=== PATIENT | female | born 2000 | race Caucasian/White ===

== ENCOUNTER → 2018-01-01 12:23 | Outpatient (CLI) | payer BC, SELFPAY ==
[2018-01-01 12:57] LABS: Absolute Lymphocyte Count 1.78 X10^3/ul (0.83-4.51); Absolute Neutrophil Count 2.6 X10^3/uL (2.0-7.7); Basophil# 0.03 X10^3/uL; Basophil% 0.6 % (0-1); Eosinophil# 0.05 X10^3/uL; Hematocrit 36.9 % (37-47); Hemoglobin 11.2 g/dl (12.0-15.0); Lymphocyte # 1.78 X10^3/ul (4.0); Lymphocyte % 36.6 % (19-41); Mean Corp Hgb Conc 30.4 g/gl (32-36); Mean Corpuscular Hgb 26.1 pg (27.0-32.0); Mean Platelet Vol. 9.8 fl (6.2-12.0); Monocyte% 8.2 % (0-10); Neutrophil % 53.6 % (47-70); Platelet Count 273 K/mm3 (150-450); RBC Distribution Width CV 14.5 % (11.6-14.6); Red Blood Count 4.29 M/mm3 (4.2-5.4); White Blood Count 4.9 K/mm3 (4.4-11.0)
[2018-01-01 13:06] LABS: POSITIVE COUNT NO; POSITIVE DIFFERENTIAL NO; POSITIVE MORPHOLOGY NO
[2018-01-01 13:10] LABS: Erythrocyte Sedimentation Rate 8 mm/hr (0-20)
[2018-01-01 13:34] LABS: Vitamin D,25 Hydroxy 31.9 ng/mL (29.95-100.01)
[2018-01-01 13:35] LABS: ALB/GLOB Ratio 0.9 RATIO (0.9-2.4); AST(SGOT) 13 U/L (15-37); Alanine Aminotransfer ALT/SGPT 15 U/L (13-56); Albumin, Serum 3.7 g/dL (3.2-5.0); Alkaline Phosphatase 45 U/L (45-117); Anion Gap 6 (5-15); BUN 11 mg/dL (7-18); BUN/Creat Ratio 12.5 RATIO (10-20); Calcium,Total 8.7 mg/dL (8.5-10.1); Chloride 106 mmol/L (98-107); Creatinine, Serum 0.88 mg/dL (0.55-1.02); EST Glomerular Filtration Rate 88 mL/min (>60); Est Glom Filt Rate - Afr Amer 106 mL/min (>60); Globulin 4.1 g/dL (2.2-4.2); Glucose 94 mg/dL (74-106); Magnesium 2.1 mg/dL (1.6-2.6); Phosphorus 2.6 mg/dL (2.5-4.9); Protein, Total 7.8 g/dL (6.4-8.2); Sodium Level 140 mmol/L (136-145); Thyroid Stim Hormone (TSH) 1.04 uIU/mL (0.358-3.74)
== END ==
PROVIDERS: Family Provider Pediatrics; PCP Pediatrics
DX: E46 Unspecified protein-calorie malnutrition (principal)
CPT/HCPCS: 36415; 80053; 82306; 83735; 84100; 84443; 85025; 85652

== ENCOUNTER → 2018-01-30 15:45 | Outpatient (CLI) | payer BC, SELFPAY ==
[2018-01-30 17:27] LABS: Hematocrit 37.9 % (37-47); Hemoglobin 11.8 g/dl (12.0-15.0); Mean Corp Hgb Conc 31.1 g/gl (32-36); Mean Corpuscular Hgb 27.4 pg (27.0-32.0); Mean Corpuscular Volume 88.1 fL (81-99); Mean Platelet Vol. 10.4 fl (6.2-12.0); Platelet Count 302 K/mm3 (150-450); RBC Distribution Width CV 14.5 % (11.6-14.6); RBC Distribution Width SD 46.6 fl (35.1-43.9); White Blood Count 6.7 K/mm3 (4.4-11.0)
[2018-01-30 17:32] LABS: Scan Indicated on CBC? Y/N NO
== END ==
PROVIDERS: Family Provider Pediatrics; PCP Pediatrics
DX: E46 Unspecified protein-calorie malnutrition (principal)
CPT/HCPCS: 36415; 85027

== ENCOUNTER → 2018-02-17 15:45 | Outpatient (CLI) | payer BC, SELFPAY ==
[2018-02-17 17:38] LABS: Hematocrit 38.9 % (37-47); Hemoglobin 11.6 g/dl (12.0-15.0)
== END ==
PROVIDERS: Family Provider Pediatrics; PCP Pediatrics
DX: E46 Unspecified protein-calorie malnutrition (principal); R53.83 Other fatigue
CPT/HCPCS: 36415; 85014; 85018

== ENCOUNTER → 2018-11-06 08:47 | Outpatient (CLI) | payer BC, SELFPAY ==
[2018-11-06 12:19] LABS: Absolute Lymphocyte Count 1.44 X10^3/ul (0.83-4.51); Absolute Neutrophil Count 1.4 X10^3/uL (2.0-7.7); Basophil# 0.04 X10^3/uL; Basophil% 1.2 % (0-1); Eosinophil# 0.05 X10^3/uL; Eosinophils% 1.4 % (0-5); Hematocrit 35.6 % (37-47); Hemoglobin 10.7 g/dl (12.0-15.0); Lymphocyte # 1.44 X10^3/ul (4.0); Lymphocyte % 41.6 % (19-41); Mean Corp Hgb Conc 30.1 g/gl (32-36); Mean Corpuscular Hgb 26.4 pg (27.0-32.0); Mean Corpuscular Volume 87.7 fL (81-99); Mean Platelet Vol. 10.7 fl (6.2-12.0); Monocyte# 0.54 X10^3/uL; Monocyte% 15.6 % (0-10); Neutrophil # 1.38 X10^3/uL (2.7-7.7); Neutrophil % 39.9 % (47-70); Platelet Count 275 K/mm3 (150-450); RBC Distribution Width CV 14.1 % (11.6-14.6); RBC Distribution Width SD 44.3 fl (35.1-43.9); Red Blood Count 4.06 M/mm3 (4.2-5.4); White Blood Count 3.5 K/mm3 (4.4-11.0)
[2018-11-06 12:20] LABS: POSITIVE COUNT NO; POSITIVE DIFFERENTIAL NO; POSITIVE MORPHOLOGY NO
[2018-11-06 12:45] LABS: ALB/GLOB Ratio 1.3 RATIO (0.9-2.4); AST(SGOT) 24 U/L (15-37); Alanine Aminotransfer ALT/SGPT 26 U/L (13-56); Albumin, Serum 4.1 g/dL (3.2-5.0); Alkaline Phosphatase 54 U/L (45-117); Anion Gap 6 (5-15); BUN 10 mg/dL (7-18); BUN/Creat Ratio 11.9 RATIO (10-20); Calcium,Total 8.8 mg/dL (8.5-10.1); Chloride 107 mmol/L (98-107); Creatinine, Serum 0.84 mg/dL (0.55-1.02); EST Glomerular Filtration Rate 91 mL/min (>60); Est Glom Filt Rate - Afr Amer 110 mL/min (>60); Globulin 3.2 g/dL (2.2-4.2); Glucose 77 mg/dL (74-106); Potassium 3.9 mmol/L (3.5-5.1); Protein, Total 7.3 g/dL (6.4-8.2); Sodium Level 140 mmol/L (136-145); Thyroid Stim Hormone (TSH) 1.35 uIU/mL (0.358-3.74)
[2018-11-06 13:33] LABS: Magnesium 2.1 mg/dL (1.6-2.6); Phosphorus 3.4 mg/dL (2.5-4.9)
== END ==
PROVIDERS: Family Provider Family Medicine; PCP Family Medicine; Visit Provider Family Medicine
DX: F50.01 Anorexia nervosa, restricting type (principal)
CPT/HCPCS: 36415; 80053; 83735; 84100; 84443; 85025

== ENCOUNTER 2021-07-13 09:14 | Day surgery (SDC) | payer BC, SELFPAY ==
[2021-07-13 09:30] VITALS: BP 93/79; PULSE 82; RESP 16; TEMP 37.3; O2SAT 100; BMI 22.3
[2021-07-13] MEDS: Lactated Ringers 1,000 ML 15 ML IV (09:45)
[2021-07-13 09:46] LABS: Internal QC Validated? YES +Cl - CLEAR BKGD
[2021-07-13 09:49] LABS: Pregnancy, Urine Negative Negative
--- NOTE | 2021-07-13 10:15 | IMM_PTH ---
PATIENT: KAROLYN MENENDEZ LOC: EN U#:[id number] AGE/SX: 21/F ROOM: RE07/13/[address]: Dr. Joao Snell DO : 2000 BED: DIS: 07/13/2021 SPEC #: [id number] RECD: 07/13/21 14:25 STATUS: FAIZA DASIA #: [id number] FERMIN: 07/13/21 10:[address]: Joao Snell DEPT: IMMUNOHISTOCHEMISTRY RECD BY: Sun Wade Tissues: E - Stomach, NOS Procedures: H Pylori (initial) PHYSICIAN & INSTITUTION [place] [id number] SPECIMEN INFORMATION: Tissue Source: E ? Gastric antrum biopsy Clinical Info: Nausea Specimen Number: [id number] CPT code: 36437 METHODOLOGY: Deparaffinized sections of prefer/formalin-fixed tissue or PAP/DQ stained slides are incubated with monoclonal/polyclonal antibodies/oligonucleotide probes. Localization is made via biotin free immunoperoxidase method. Appropriate controls are performed and reacted as expected. Results on target cell population are indicated in the following table: RESULTS: ANTIBODY / CLONE RESULT Block E H Pylori (polyclonal) negative These tests were developed and their performance characteristics determined by [facility]. They may not have been cleared or approved by the U.S. Food and Drug Administration. The FDA has determined that such clearance or approval is not necessary. INTERPRETATION: E. Gastric antrum, biopsy: Negative for Helicobacter pylori organisms. LORENZA:anna 07/14/2021
--- NOTE | 2021-07-13 10:15 | EGD_PTH ---
PATIENT: KAROLYN MENENDEZ LOC: EN U#:[id number] AGE/SX: 21/ ROOM: RE07/13/[address]: Dr. Joao Snell DO : 2000 BED: DIS: 07/13/2021 SPEC #: [id number] RECD: 07/13/21 12:52 STATUS: FAIZA DASIA #: [id number] FERMIN: 07/13/21 10:[address]: Joao Snell DEPT: SURGICAL PATHOLOGY RECD BY: Tiarra Bourne Tissues: A - Duodenum, NOS B - Esophagus, NOS C - Esophagus, NOS D - Esophagus, NOS E - Gastric mucous membrane Procedures: Special Stain Group II Surgery Specimen Level IV Alcian Blue/PAS (control) HEADER OPERATION: EGD ([facility] [place] PRE-OP DIAGNOSIS: Nausea TISSUE SUBMITTED: A ? Duodenum biopsy, B ? Distal esophagus biopsy, C ? Mid esophagus biopsy, D ? Proximal esophagus biopsy, E ? Gastric antrum biopsy for H. pylori and path MICROSCOPIC DIAGNOSIS A. Duodenum, biopsy: Fragments of duodenal mucosa with Regina gland hyperplasia. B. Distal esophagus, biopsy: Fragments of gastric mucosa with congestion and minimal chronic inflammation. Intestinal metaplasia (goblet cell metaplasia) not identified. See comment. C. Mid esophagus, biopsy: Fragments of squamous epithelium, no pathologic diagnosis. D. Proximal esophagus, biopsy: Fragments of gastroesophageal mucosa with mild chronic inflammation. Intestinal metaplasia (goblet cell metaplasia) not identified. See comment. E. Gastric antrum, biopsy: Mild gastritis. See microscopic description and comment. SJ:rg 07/14/2021 COMMENT B. Alcian blue/PAS stain with matched control is used in the evaluation of the specimen. D. Alcian blue/PAS stain with matched control is used in the evaluation of the specimen. E. The results of immunohistochemistry for Helicobacter pylori will be reported separately ([id number]). MICROSCOPIC DESCRIPTION Slides are reviewed. E. The specimen shows fragments of gastric mucosa with chronic inflammatory cell infiltrates in the lamina propria consisting of lymphocytes and plasma cells, consistent with mild chronic gastritis. GROSS DESCRIPTION A - Received in fixative is one container labeled with the patient's name and designated duodenum biopsy. The specimen consists of multiple irregular fragments of light kitchen soft tissue that in aggregate measure 1 x 0.6 x 0.1 cm. The specimen is totally submitted in one cassette. B - Received in fixative is one container labeled with the patient's name and designated esophagus biopsy. The specimen consists of multiple irregular fragments of light kitchen soft tissue that in aggregate measure 1 x 0.5 x 0.1 cm. The specimen is totally submitted in one cassette. C - Received in fixative is one container labeled with the patient's name and designated mid esophagus biopsy. The specimen consists of two irregular fragments of light kitchen soft tissue that in aggregate measure 1 x 0.5 x 0.1 cm. The specimen is totally submitted in one cassette. D - Received in fixative is one container labeled with the patient's name and designated proximal esophagus biopsy. The specimen consists of multiple irregular fragments of light kitchen soft tissue that in aggregate measure 1 x 0.5 x 0.1 cm. The specimen is totally submitted in one cassette. E - Received in fixative is one container labeled with the patient's name and designated gastric antrum biopsy. The specimen consists of two irregular fragments of light kitchen soft tissue that in aggregate measure 0.5 x 0.5 x 0.1 cm. The specimen is totally submitted in one cassette. / AM:anna 07/13/21 TC:3 CPT: 96638 x5, 02347 x2
[2021-07-13 10:45] VITALS: BP 86/57; BP 93/79; PULSE 60; RESP 16; TEMP 36.3; O2SAT 100
[2021-07-13 10:50] VITALS: BP 88/58; BP 93/79; PULSE 58; RESP 18; O2SAT 100
[2021-07-13 10:55] VITALS: BP 87/60; BP 93/79; PULSE 66; RESP 18; O2SAT 100
--- NOTE | 2021-07-13 10:56 | OP.EGD_ITS ---
Patient Name: Kassie Villegas Procedure Date: 07/13/2021 10:24 AM Date of : 2000 Age: 21 Procedure: Upper GI endoscopy Indications: Epigastric abdominal pain, Failure to respond to medical treatment Providers: Joao Snell DO Medicines: See the Anesthesia note for documentation of the administered medications Patient Profile: This is a 21 year old female. Refer to note in patient chart for documentation of history and physical. Patient has symptoms of acute abdominal cramping, chronic dyspepsia, chronic nausea and chronic vomiting. Complications: No immediate complications. Procedure: Pre-Anesthesia Assessment: - Prior to the procedure, a History and Physical was performed, and patient medications and allergies were reviewed. The patient is competent. The risks and benefits of the procedure and the sedation options and risks were discussed with the patient. All questions were answered and informed consent was obtained. Patient identification and proposed procedure were verified by the physician in the pre-procedure area. Mental Status Examination: alert and oriented. Airway Examination: normal oropharyngeal airway and neck mobility. Respiratory Examination: clear to auscultation. CV Examination: normal. Prophylactic Antibiotics: The patient does not require prophylactic antibiotics. Prior Anticoagulants: The patient has taken no previous anticoagulant or antiplatelet agents. ASA Grade Assessment: II - A patient with mild systemic disease. After reviewing the risks and benefits, the patient was deemed in satisfactory condition to undergo the procedure. The anesthesia plan was to use moderate sedation / analgesia (conscious sedation). Immediately prior to administration of medications, the patient was re-assessed for adequacy to receive sedatives. The heart rate, respiratory rate, oxygen saturations, blood pressure, adequacy of pulmonary ventilation, and response to care were monitored throughout the procedure. The physical status of the patient was re-assessed after the procedure. After obtaining informed consent, the endoscope was passed under direct vision. Throughout the procedure, the patient's blood pressure, pulse, and oxygen saturations were monitored continuously. The Endoscope was introduced through the mouth, and advanced to the second part of duodenum. The upper GI endoscopy was accomplished without difficulty. The patient tolerated the procedure well. Moderate Sedation: Moderate (conscious) sedation was administered by the endoscopy nurse and supervised by the endoscopist. The patient's oxygen saturation, heart rate, blood pressure and response to care were monitored. Total physician intraservice time was 15 minutes. Scope In: 10:34:09 AM Scope Out: 10:42:40 AM Total Procedure Duration Time 0 hours 8 minutes 31 seconds Findings: Multiple areas of ectopic gastric mucosa were found in the upper third of the esophagus, 18 cm from the incisors. Biopsies were taken with a cold forceps for histology. Verification of patient identification for the specimen was done. Estimated blood loss was minimal. LA Grade A (one or more mucosal breaks less than 5 mm, not extending between tops of 2 mucosal folds) esophagitis with no bleeding was found 34 to 35 cm from the incisors. Biopsies were taken with a cold forceps for histology. Verification of patient identification for the specimen was done. Estimated blood loss was minimal. Localized mildly erythematous mucosa without bleeding was found in the gastric antrum. Biopsies were taken with a cold forceps for histology. Verification of patient identification for the specimen was done. Estimated blood loss was minimal. The second portion of the duodenum was normal. Biopsies were taken with a cold forceps for histology. Verification of patient identification for the specimen was done. Estimated blood loss was minimal. Impression: - Ectopic gastric mucosa in the upper third of the esophagus. Biopsied. - LA Grade A reflux esophagitis. Biopsied. - Erythematous mucosa in the antrum. Biopsied. - Normal second portion of the duodenum. Biopsied. Recommendation: - Discharge patient to home. - Resume previous diet today. - Continue present medications. - Use Prilosec (omeprazole) 40 mg PO BID for 8 days. Procedure Code(s): --- Professional --- 54748, Esophagogastroduodenoscopy, flexible, transoral; with biopsy, single or multiple 81168, 59, Moderate sedation services provided by the same physician or other qualified health campground caretaker performing the diagnostic or therapeutic service that the sedation supports, requiring the presence of an independent trained observer to assist in the monitoring of the patient's level of consciousness and physiological status; initial 15 minutes of intraservice time, patient age 5 years or older CPT copyright 2017 [employer]. All rights reserved. The codes documented in this report are preliminary and upon molecular biology scientist review may be revised to meet current compliance requirements. Joao Snell DO 07/13/2021 10:55:28 AM This report has been signed electronically. Number of Addenda: 1 Note Initiated On: 07/13/2021 10:24 AM Addendum Number: 1 Addendum Date: 03/15/2022 6:09:13 AM MAC was used instead of moderate sedation for the patient. Joao Snell, 03/15/2022 6:09:17 AM This report has been signed electronically.
[2021-07-13 11:00] VITALS: BP 87/61; BP 93/79; PULSE 63; RESP 18; TEMP 36.3; O2SAT 100
[2021-07-13 11:35] VITALS: BP 93/79
--- NOTE | 2021-07-13 17:12 | HP.PCM_ITS ---
History and Physical Date of Admission: 07/13/21 1 F who presents to the office today for Referred for evaluation of heartburn and nausea. Additional history nausea, heartburn, anorexia nervosa restricting type (seeing [facility]), bloating, dizziness and urinary symptoms. Heartburn ? taking protonix. PCP and behavioral health rn referred due to nausea and early satiety. They believe her stomach is not emptying properly. Nausea starts with PO intake and then remains throughout the day. She eats a bland diet which does not particularly help with nausea but does not increase it significantly. Reports some emesis, but not often. Denies gastric emptying study and imaging. Has attempted Zofran (ineffective), reglan (no significant improvement), brittny foods attempted without effect. Sometimes sitting up straight with a heating pad will take the edge off her symptoms. Heartburn happens occasionally but this is not a target of concern today. ROS Const Constitutional: Positive for fatigue Cardio Cardiology: Positive for shortness of breath Gastro GI: Positive for abdominal pain, bloating and nausea/dyspepsia Musc Musculoskeletal: Positive for tingling Neuro Neurology: Positive for tingling Psych Psychiatric: Positive for anxiety and Positive for obsessions/compulsions Endo Endocrine: Positive for cold intolerance and fatigue Kirby/Lymp Hematologic/Lymphatic: Positive for easy bruising Exam Const General: cooperative and comfortable Nutritional Appearance: average body habitus and well nourished [facility] Head: normal to inspection Ears: hearing grossly normal bilaterally Nose: external nose normal Face and sinus: normal facial exam Mouth: oral mucosae normal Throat: posterior oropharynx normal Eyes General: appearance normal, both eyes and all related structures Neck Neck: normal visual inspection Chest Chest palpation & inspection: normal inspection of the chest and normal palpation of entire chest wall Resp Effort & Inspection: normal respiratory effort Auscultation: Bilateral: Clear to Auscultation Cardio Palpation: normal PMI Rate: regular rate Rhythm: regular rhythm GI Inspection: normal to inspection Auscultation: normal bowel sounds Percussion: normal to percussion Palpation: no hepatosplenomegaly Skin General: no rashes or lesions noted Neuro General: patient alert Extrem General: normal to inspection Psych Affect: normal affect Quality Reporting Tobacco Screening ([facility] 138) Smoking Status: Never smoker Assessment and Plan Assessment and Plan (1) Nausea: Status: Acute Plan - Dr. Shepherd Friend, DO: Differential diagnosis for her nausea does include atypical gastroesophageal reflux disease. She is on Protonix therapy. She does have a eating disorder which could have led to a hiatal hernia. Also deserves diagnosis is gastroparesis brought about secondary to anorexia nervosa. Also we will need to look at her upper GI tract to evaluate for pyloric stenosis and gastritis secondary to H. pylori or peptic ulcer disease. She will undergo upper endoscopy and we will continue pantoprazole for now. She was explained alternatives, risk and benefits including not withstanding bleeding, infection, sepsis, perforation, need for emergency or . She have ASA 1. I have re-examined the patient. There are no clinical changes since date of exam.
== END 2021-07-13 23:59 | disposition home or self-care (01) ==
LOC: EN 09:17 → AC 09:19
PROVIDERS: Anesthesiology; Referring Provider Internal Medicine Gastroenterology; Visit Provider Internal Medicine Gastroenterology
PROC: 0DJ08ZZ Inspection of Upper Intestinal Tract, Via Natural or Artificial Opening Endoscopic (ICD-10-PCS; CPT 43235; principal; 2021-07-13 10:10)
DX: K21.00 Gastro-esophageal reflux disease with esophagitis, without bleeding (principal); K29.70 Gastritis, unspecified, without bleeding; K31.89 Other diseases of stomach and duodenum; R11.0 Nausea; F32.A Depression, unspecified; F41.9 Anxiety disorder, unspecified; F50.00 Anorexia nervosa, unspecified; Z68.22 Body mass index [BMI] 22.0-22.9, adult; Z79.899 Other long term (current) drug therapy
CPT/HCPCS: 43239; 81025; 88305; 88313; 88342; J7120; J2405

== ENCOUNTER 2021-07-14 14:28 | Outpatient (CLI) | payer BC, SELFPAY ==
[2021-07-17 17:07] LABS: Endomysial Antibody IgA Negative (Negative)
[2021-07-17 18:40] LABS: Immunoglobulin A 206 mg/dL (87-352); t-Transglutaminase IgA <2 U/mL (0-3)
== END 2021-07-14 23:59 | disposition short-term general hospital (02) ==
LOC: LAB 14:30
PROVIDERS: Referring Provider Internal Medicine Gastroenterology; Visit Provider Internal Medicine Gastroenterology
DX: K29.60 Other gastritis without bleeding (principal)
CPT/HCPCS: 36415; 82784; 83516; 86255

== ENCOUNTER 2021-07-17 15:58 | Outpatient (CLI) | payer BC, SELFPAY ==
[2021-07-20 09:22] LABS: H. PYLORI STOOL AG Negative (Negative)
== END 2021-07-17 23:59 | disposition short-term general hospital (02) ==
PROVIDERS: Referring Provider Internal Medicine Gastroenterology; Visit Provider Internal Medicine Gastroenterology
DX: K29.60 Other gastritis without bleeding (principal)

== ENCOUNTER → 2022-06-15 | Outpatient (CLI) | payer BC, SELFPAY | END | disposition home or self-care (01) | LOC: LABSPEC 15:03 | PROVIDERS: Referring Provider Nurse Practitioner Adult Health; Visit Provider Nurse Practitioner Adult Health | DX: K92.1 Melena (principal) | CPT/HCPCS: 82274 ==

== ENCOUNTER → 2023-04-24 | Outpatient (CLI) | payer BC, SELFPAY ==
--- NOTE | 2023-04-24 11:44 | NM_ITS ---
CLINICAL: 23-year-old female with history of early satiety, abdominal pain and nausea. SEMI-SOLID PHASE 99m Tc SULFUR COLLOID GASTRIC EMPTYING STUDY COMPARISON: None available FINDINGS: The patient was administered 1.0 mCi of 99m Tc sulfur colloid mixed with oatmeal and consumed per os. Image acquisitions in the anterior-posterior projections were obtained for 60 minutes. There is prompt visualization of the stomach. There is no gastroesophageal reflux identified. First order kinetics are maintained throughout the duration of the acquisitions. The T ? linear fit was extrapolated to be 64.83 Minutes, (Normal: 12-56 minutes). NM/Gastric Emptying Study IMPRESSION: 1. ABNORMAL 99m Tc sulfur colloid semi-solid phase (oatmeal) gastric emptying imaging examination. A. There is delayed semi-solid phase gastric emptying compared to normal controls with maintained first order kinetics throughout all components of the examination. (Faye et al, J Nucl Med Tech 38: 186, 2010). Electronically Signed: Dg Soni DO at 21:30 EDT ,
== END | disposition home or self-care (01) ==
LOC: NM 11:41
PROVIDERS: Referring Provider Internal Medicine Gastroenterology; Visit Provider Internal Medicine Gastroenterology
DX: K29.60 Other gastritis without bleeding (principal)
CPT/HCPCS: 78264; A9541

== ENCOUNTER → 2023-09-23 | Outpatient (CLI) | payer BC, SELFPAY ==
[2023-09-23 10:23] LABS: Erythrocyte Sedimentation Rate 1 mm/hr (0-30)
[2023-09-23 10:27] LABS: Absolute Lymphocyte Count 1.74 X10^3/uL (0.83-4.51); Absolute Neutrophil Count 1.9 X10^3/uL (2.0-7.7); Basophil# 0.05 X10^3/uL; Basophil% 1.2 % (0-1); Eosinophil# 0.11 X10^3/uL; Eosinophils% 2.5 % (0-5); Hematocrit 37.2 % (37-47); Hemoglobin 11.1 g/dL (12.0-15.0); Lymphocyte # 1.74 X10^3/ul (0.83-4.51); Lymphocyte % 40.3 % (19-41); Mean Corp Hgb Conc 29.8 g/dL (32-36); Mean Corpuscular Hgb 27.1 pg (27.0-32.0); Monocyte# 0.49 X10^3/uL; Monocyte% 11.3 % (0-10); NRBC Flagged by Analyzer 0 % (0-5); Neutrophil # 1.92 X10^3/uL (2.7-7.7); Neutrophil % 44.5 % (47-70); Platelet Count 294 K/mm3 (150-450); RBC Distribution Width SD 42.6 fl (35.1-43.9); Red Blood Count 4.09 M/mm3 (4.2-5.4); White Blood Count 4.3 K/mm3 (4.4-11.0)
[2023-09-23 11:18] LABS: Vitamin B12 687 pg/mL (211-911)
[2023-09-23 11:38] LABS: CRP < 2.90 mg/L (0.0-3.0)
[2023-09-25 15:08] LABS: Anti-Parietal Cell AB, QN 2.5 Units (0.0-20.0); Gastrin, Serum 63 pg/mL (0-115); Intrinsic Factor Ab 1.1 AU/mL (0.0-1.1)
== END | disposition home or self-care (01) ==
PROVIDERS: Referring Provider Internal Medicine Gastroenterology; Visit Provider Internal Medicine Gastroenterology
DX: K29.60 Other gastritis without bleeding (principal); R11.0 Nausea
CPT/HCPCS: 36415; 82607; 82746; 82941; 83516; 85025; 85652; 86140; 86340

== ENCOUNTER 2023-10-10 05:58 | Day surgery (SDC) | payer BC, SELFPAY ==
[2023-10-10 06:25] LABS: Internal QC Validated? YES +Cl - CLEAR BKGD; Pregnancy, Urine Negative Negative
[2023-10-10 06:28] VITALS: BMI 24.2
[2023-10-10] MEDS: Lactated Ringers 1,000 ML 15 ML IV (06:34)
--- NOTE | 2023-10-10 07:00 | EGD_PTH ---
PATIENT: KAROLYN MENENDEZ LOC: EN U#:[id number] AGE/SX: 23/F ROOM: RE10/10/[address]: Dr. Joao Snell DO : 2000 BED: DIS: 10/10/2023 SPEC #: [id number] RECD: 10/10/23 09:31 STATUS: FAIZA DASIA #: [id number] FERMIN: 10/10/23 07:[address]: Joao Snell DEPT: SURGICAL PATHOLOGY RECD BY: Tiarra Bourne ENTERED: 10/10/23 12:08 SP TYPE: EGD BIOPSY OT DR: No Primary Care Phys Tissues: Gastric mucous membrane Procedures: Surgery Specimen Level IV HEADER OPERATION: EGD, biopsy PRE-OP DIAGNOSIS: Nausea, lymphocytic gastritis TISSUE SUBMITTED: Gastric antrum biopsy MICROSCOPIC DIAGNOSIS Gastric antrum, biopsy: Minimal gastritis. See microscopic description and comment. LORENZA/ 10/11/23 COMMENT The results of immunohistochemistry for Helicobacter pylori will be reported separately ([id number]). MICROSCOPIC DESCRIPTION Slides are reviewed. The specimen shows fragments of gastric mucosa with chronic inflammatory cell infiltrates in the lamina propria consisting of lymphocytes and plasma cells, consistent with minimal chronic gastritis. GROSS DESCRIPTION Received in fixative is one container labeled with the patient's name and designated Gastric antrum biopsy. The specimen consists of multiple irregular fragments of light kitchen soft tissue that in aggregate measure 1.0 x 0.5 x 1 cm. The specimen is totally submitted in one cassette. LORENZA/ 10/10/2023 TC:3 CPT:49258
--- NOTE | 2023-10-10 07:00 | IMM_PTH ---
PATIENT: KAROLYN MENENDEZ LOC: EN U#:[id number] AGE/SX: 23/F ROOM: RE10/10/[address]: Dr. Joao Snell DO : 2000 BED: DIS: 10/10/2023 SPEC #: [id number] RECD: 10/10/23 13:54 STATUS: FAIZA REWilliam #: [id number] FERMIN: 10/10/23 07:[address]: Joao Snell DEPT: IMMUNOHISTOCHEMISTRY RECD BY: Harish Montoya ENTERED: 10/10/23 13:54 SP TYPE: IMMUNO NICOLETTE DR: No Primary Care Phys Tissues: Stomach, NOS Procedures: H Pylori (initial) PHYSICIAN & INSTITUTION [place] [id number] SPECIMEN INFORMATION: Tissue Source: Gastric antrum biopsy Clinical Info: Nausea, Lymphocytic gastritis Specimen Number: [id number] CPT code: 33442 METHODOLOGY: Deparaffinized sections of prefer/formalin-fixed tissue or PAP/DQ stained slides are incubated with monoclonal/polyclonal antibodies/oligonucleotide probes. Localization is made via biotin free immunoperoxidase method. Appropriate controls are performed and reacted as expected. Results on target cell population are indicated in the following table: RESULTS: ANTIBODY / CLONE RESULT H Pylori (polyclonal) negative These tests were developed and their performance characteristics determined by [facility]. They may not have been cleared or approved by the U.S. Food and Drug Administration. The FDA has determined that such clearance or approval is not necessary. The above immunohistochemical/dualISH markers are ordered and reviewed by the Pathologist. INTERPRETATION: Gastric antrum, biopsy: Negative for Helicobacter pylori organisms. LORENZA/ 10/11/23
--- NOTE | 2023-10-10 07:06 | PCM.HP.BLA ---
History and Physical Date of Admission: 10/10/23 KAROLYN MENENDEZ, is a 23 F who presents to the office today for *BGI established 06.29.21 with postprandial nausea and early satiety with possible gastroparesis; Zofran and reglan have been ineffective. ? EGD 07.03.21 multiple areas of ectopic mucosa; LA Grade A esophagitis without metaplasia; gastritis; Regina gland hyperplasia ? Biochemical 07.14.21 celiac WNL ? Stool H.Pylori WNL OV 07.28.21 BM typically constipated with days between movement. Nausea, heartburn, stomach discomfort has resolved. OV 02.21.22 return of nausea with weaning of PPI; famotidine ineffective. ? Stool 06.15.22 occult WNL OV 10.01.22 continues PPI QD. Continue treatment for history of anorexia nervosa. OV 04.03.23 reports that she is doing very well; intermittent nausea approximately once a month. Feels the elimination of gluten has been the most helpful. Continues with omeprazole. ? GET 04.24.23 64.83minutes (12-56) Contact 05.03.22 with GET results; not indicated for medication intervention (and failed previously); recommend gastroparesis diet and addressing possible contributing factors (DMII, marijuana use, stress/anxiety) OV 09.23.23 N/V following gluten ingestion several days ago. Reports BM are ?fine?. 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 Taking reglan as prescribed by her eating disorder doctor. ROS Const Constitutional: Positive for fatigue; No fever(s), frequent falls, headache(s) or weight change ENT ENT: No headache(s) or difficulty swallowing Cardio Cardiology: No leg pain with exertion Gastro GI: Positive for nausea/dyspepsia; No abdominal pain, bloating, change in bowel habits, constipation, diarrhea, heartburn, difficulty swallowing, Vomiting blood/hematemesis, Blood in stool or vomiting Musc Musculoskeletal: No abnormal gait, joint pain, back pain, joint swelling, muscle cramps, muscle weakness, numbness, stiffness, tingling, Arthritis, sciatica, leg pain at night or leg pain with exertion Skin Skin: No dry skin, lesions, itchy eyes or rash Neuro Neurology: No abnormal gait, dizziness, frequent falls, headache(s), numbness, tingling, tremor(s), Increased tone in limbs, paralysis or seizures Psych Psychiatric: Positive for anxiety, No depression, No paranoia, No Behavioral Problems, No Compulsive Behavior, No hyperactivity, No inattentiveness, No obsessions/compulsions, No Temper Tantrums and No suicidal ideation Endo Endocrine: Positive for fatigue; No weight change Aller/Imm Allergy/Immunologic: No itchy eyes Kirby/Lymp Hematologic/Lymphatic: No easy bleeding or easy bruising Exam Const General: cooperative, healthy appearing and comfortable Nutritional Appearance: average body habitus Orientation: alert, awake and oriented x3 Quality Reporting Tobacco Screening ([facility] 138) Smoking Status: Never smoker Assessment and Plan Assessment and Plan (1) Nausea: Status: Chronic Plan: Now that her stress level is a lot better regarding school and her eating disorder we will try to wean off of omeprazole and transition her to famotidine in and off. We will also get a gastric emptying study to see if she has gastroparesis secondary to her diagnosis of anorexia nervosa. We will also repeat her upper endoscopy to evaluate upper GI tract. (2) Lymphocytic gastritis: Status: Acute Plan: Lymphocytic gastritis can be associated with autoimmune gastritis. There are both forms of chronic gastritis. We will get a B12, folic acid, intrinsic factor, antiparietal cell antibody and gastrin as they all can be affected with a chronic gastritis. Orders: Orders Gastrin, Serum Today K29.60 - Other gastritis without bleeding, R11.0 - Nausea Anti-Parietal Cell AB, QN Today K29.60 - Other gastritis without bleeding, R11.0 - Nausea Vitamin B12 Today K29.60 - Other gastritis without bleeding, R11.0 - Nausea Intrinsic Factor Ab Today K29.60 - Other gastritis without bleeding, R11.0 - Nausea Erythrocyte Sed Rate Today K29.60 - Other gastritis without bleeding, R11.0 - Nausea CRP Today K29.60 - Other gastritis without bleeding, R11.0 - Nausea CBC W/Diff, Automated Today K29.60 - Other gastritis without bleeding, R11.0 - Nausea Folates, (Folic Acid) Today K29.60 - Other gastritis without bleeding, R11.0 - Nausea Gastric Emptying Study Today K29.60 - Other gastritis without bleeding, R11.0 - Nausea I have examined the patient and the H&P has been reviewed. There are no clinical changes since date of exam.
[2023-10-10 07:28] VITALS: BP 100/55; BP 85/54; PULSE 86; RESP 20; TEMP 36.5; O2SAT 97
--- NOTE | 2023-10-10 07:29 | OP.CCLET_ITS ---
10/10/2023 No Primary Care Physician Re : Upper GI endoscopy procedure for Kassie Villegas Dear Care Physician This procedure was performed on October. My impressions and recommendations are as follows: Impressions : - Normal esophagus. - Retained gastric fluid. - A small amount of food (residue) in the stomach. - Erythematous mucosa in the antrum. Biopsied. - No gross lesions in the second portion of the duodenum. Recommendations : - Discharge patient to home. - Resume previous diet. - Continue present medications. - Await pathology results. My findings are described in the full procedure note, which is enclosed. If I can be of further assistance, please feel free to contact me at . Sincerely, Joao Snell, 10/10/2023 7:28:25 AM This report has been signed electronically.
--- NOTE | 2023-10-10 07:29 | OP.EGD_ITS ---
Patient Name: Kassie Villegas Procedure Date: 10/10/2023 7:08 AM Date of : 2000 Age: 23 Procedure: Upper GI endoscopy Indications: Epigastric abdominal pain Providers: Joao Snell DO Medicines: Monitored Anesthesia Care Patient Profile: This is a 23 year old female. Refer to note in patient chart for documentation of history and physical. Patient has symptoms of chronic abdominal distention and chronic epigastric abdominal pain. Complications: No immediate complications. Procedure: Pre-Anesthesia Assessment: - Prior to the procedure, a History and Physical was performed, and patient medications and allergies were reviewed. The patient is competent. The risks and benefits of the procedure and the sedation options and risks were discussed with the patient. All questions were answered and informed consent was obtained. Patient identification and proposed procedure were verified by the physician in the pre-procedure area. Mental Status Examination: alert and oriented. Respiratory Examination: clear to auscultation. CV Examination: normal. Prophylactic Antibiotics: The patient does not require prophylactic antibiotics. Prior Anticoagulants: The patient has taken no anticoagulant or antiplatelet agents. ASA Grade Assessment: II - A patient with mild systemic disease. After reviewing the risks and benefits, the patient was deemed in satisfactory condition to undergo the procedure. The anesthesia plan was to use monitored anesthesia care (MAC). Immediately prior to administration of medications, the patient was re-assessed for adequacy to receive sedatives. The heart rate, respiratory rate, oxygen saturations, blood pressure, adequacy of pulmonary ventilation, and response to care were monitored throughout the procedure. The physical status of the patient was re-assessed after the procedure. After obtaining informed consent, the endoscope was passed under direct vision. Throughout the procedure, the patient's blood pressure, pulse, and oxygen saturations were monitored continuously. The Endoscope was introduced through the mouth, and advanced to the second part of duodenum. The upper GI endoscopy was accomplished without difficulty. The patient tolerated the procedure well. Scope In: 7:18:30 AM Scope Out: 7:22:16 AM Total Procedure Duration Time 0 hours 3 minutes 46 seconds Findings: The examined esophagus was normal. Retained fluid was found in the gastric body. A small amount of food (residue) was found in the gastric body. Patchy mildly erythematous mucosa without bleeding was found in the gastric antrum. Biopsies were taken with a cold forceps for histology. Verification of patient identification for the specimen was done. Estimated blood loss was minimal. Biopsies were taken with a cold forceps for Helicobacter pylori testing. Verification of patient identification for the specimen was done. Estimated blood loss was minimal. No gross lesions were noted in the second portion of the duodenum. Impression: - Normal esophagus. - Retained gastric fluid. - A small amount of food (residue) in the stomach. - Erythematous mucosa in the antrum. Biopsied. - No gross lesions in the second portion of the duodenum. Recommendation: - Discharge patient to home. - Resume previous diet. - Continue present medications. - Await pathology results. Procedure Code(s): --- Professional --- 48836, Esophagogastroduodenoscopy, flexible, transoral; with biopsy, single or multiple CPT copyright 2021 [employer]. All rights reserved. The codes documented in this report are preliminary and upon drag sawyer review may be revised to meet current compliance requirements. Joao Snell DO 10/10/2023 7:28:25 AM This report has been signed electronically. Number of Addenda: 0 Note Initiated On: 10/10/2023 7:08 AM
[2023-10-10 07:30] VITALS: BP 100/55; BP 83/49; PULSE 84; RESP 20; O2SAT 97
[2023-10-10 07:35] VITALS: BP 100/55; BP 87/61; PULSE 75; PULSE 84; RESP 18; O2SAT 100; O2SAT 97
[2023-10-10 07:46] VITALS: BP 100/55; BP 89/58; PULSE 67; RESP 18; TEMP 36.7; O2SAT 97
[2023-10-10 07:58] VITALS: BP 100/55
== END 2023-10-10 08:10 | disposition home or self-care (01) ==
LOC: EN 05:58 → AC 05:59
PROVIDERS: Anesthesiology; Visit Provider Internal Medicine Gastroenterology
PROC: 0DJ08ZZ Inspection of Upper Intestinal Tract, Via Natural or Artificial Opening Endoscopic (ICD-10-PCS; CPT 43235; principal; 2023-10-10 06:55)
DX: K29.60 Other gastritis without bleeding (principal); K30 Functional dyspepsia; R53.83 Other fatigue; F41.9 Anxiety disorder, unspecified
CPT/HCPCS: 43239; 81025; 88305; 88342; J7120; J2405

== ENCOUNTER 2023-10-11 15:00 | Outpatient (RCR) | payer BC, SELFPAY ==
--- NOTE | 2023-08-30 15:28 | HP.PTEVAL ---
Patient's Visit Information Visit Information Visit Information: KAROLYN MENENDEZ is a 23 year old F referred to Physical Therapy by Mane Jha MD with a diagnosis of R hip dysplasia s/p hip periacetabluar osteoptomy 07/29/23. Date of Evaluation: 08/30/23 Physical Therapist: Sushil Gilliland, DPT, OCS, CSCS Visit Plan Frequency: 1-3x/week Duration: 3 Months Plan: 1-3x/week for 8-12 weeks as needed for progression through JAXON protocol in folder and scanned in. Next wo weeks is 30% WB with crutches and please work on painfree PROM, isometric hip strengbth and LE strength per protocol, monitor incision for scar massage. After 09/10 doctor f/u if released then will be gait training strength adn ROM/stretch per protocol Subjective Subjective: Had a JAXON surgery R side for hip dysplasia. 07/29/23. Has lots of r hip pain prior and shifting in R hip w2hich was worsening since age 10. Was sharp pain now and then prior02/14 a couple times per week. Surgery went well. Pain is bad at first but this week to 10 intermittently, worse with on it alot. Using crutches all the time and is 30% WB R until 6 week f/u on 09/10. No bracing or taping. Sleeping is OK. Basic ADLS are getting done with crutches. Incision is OK. 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 Hobbies: wants to walk normal, wants to hike, take dogs on walk. Live with roommate in two story, steps are OK but doing front door steps OK with crutches. Moved to ground floor for now. Pain R hip: Pain Intensity (Out of 10): 0 Pain Intensity Range: 0 and 4 Objective Objective: Walks 30% WB approx with two crutches PWB through the department I. Transfers chair I, bed I. L hip ROM WFL. flexion 115 and abduction 40 with er. R hip PROM 100 flexion, 30 abd/er, 30 IR, 10 extension Incision is anterior at hip and is dry and healed well except distal 1/3 which still has scap. No signs of excessive redness heat or swelling adn only mild scar tissue. 3 arthroscopic points also healed well without redness and mild tenderness to palpation. Unable to SLR abd or flexion, can do extension without pain. Core strength 4-, R hip 3-/5 rotation, abd, flexion and 3+ extension. reflexes 2/3 patella and achilles B Sensation WNL to gross light touch in LE. knee AROM and ankle WFL B and strength R 4+ ankle and 4- knee R vs 4+ L. Balance/Special Test Scores Lower Extremity Functional Score: 28 Goals Goal 1:: ST: PROM full and painfree R hip Goal Time Frame: 2-4 Weeks Goal 2:: LT:Walk without gait deviations I and steps reciprocal without rail Goal Time Frame: 6-8 Weeks Goal 3:: LT: pain 0/10 at rest and I management of progress with home strength ex Goal Time Frame: 6-8 Weeks Goal 4:: Patient ready to return to hiking and work Goal Time Frame: 8-12 Weeks Goal 5:: LEFS 55 Goal Time Frame: 8-12 Weeks Rehabilitation Potential Physical Therapy Diagnosis: hip wekaness, rom deficits effecting gait and function Rehabilitation Potential: Good Anticipated Interventions Patient/Client Instruction: Educate patient on: Condition and Plan of Care For the Purpose of:: To decrease pain, To increase ROM, To improve nutrient delivery to tissue, To increase oxygenation perfusion, To improve muscle performance and motor function, To increase tolerance to activity/condition/position, To improve ability of physical actions for home/community/work/leisure and To improve gait and locomotor functions Therapeutic Exercise to Include: Strength training, Flexibilty training, Gait and locomotor training, Passive ROM and Active ROM For the Purpose of:: To decrease pain, To increase ROM, To improve nutrient delivery to tissue, To improve muscle performance and motor function, To increase tolerance to activity/condition/position, To improve ability of physical actions for home/community/work/leisure and To improve gait and locomotor functions Manual Therapy Techniques to Include: Scar massage, Mobilization, Passive ROM and Soft tissue mobilization For the Purpose of:: To decrease pain, To decrease swelling/inflammation and To increase ROM Cryotherapy (ice pack, ice massage): Yes For the Purpose of:: To decrease pain and To decrease swelling/inflammation Text: Thank you for the opportunity to evaluate your patient. For Medicare and Medicare HMO plans, please review the plan of care and approve it. It will need to be FAXED BACK to us at [phone] for Medicare purposes. For Medicare only, by signing this I certify the plan of care. Please let me know if there are questions or concerns regarding this plan of care. Physician Signature: Date:
--- NOTE | 2023-10-11 15:49 | HP.PTREVAL ---
Re-Evaluation Intro: Mane Jha MD, It has been my pleasure to treat KAROLYN MENENDEZ over the last 11 visits for R hip dysplasia s/p hip periacetabluar osteoptomy 07/29/23. Please see the progress note below for an update on the physical therapy plan of care! Subjective Subjective: Pain level is up to 3/10 in anterior hip if on feet alot. Pinches sometimes but not alot. Pinches 15% of time. 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 Worse at end of shift. Sleeping OK. HEP: now adn then. To doctor in 2 weeks. No AD needed anymore. Activities: normal Objective Objective/Function: walking without pain today and no episodes of pinching or soreness. David IR at R hip with ascend and desecend steps but correct with VC without pain. 0 score on active hip abduction test Painfree hip ROM to 105 flexion R and 24 abduction and 8 extension, similar to L and funcitonal No gait deivations or deviations with squat today. 0-1 score on anterior step down test. SLS for 60 seconds without hip drop R. Overall doing very well and funcitonal for her lifestyle. Wishes to continue via HEP instead of more therapy and will fu in 3 weeks or as needed after dotor appointment. Plan Plan Plan: f/u 3 weeks for d/c if doing well or strength progression.(pt choice vs continued therapy) Balance/Gait/Functional tests Balance/Special Test Scores Lower Extremity Functional Score: 28 Goals Goals Goal 1:: ST: PROM full and painfree R hip Goal Time Frame: 2-4 Weeks Goal Progress: Progressing Goal 2:: LT:Walk without gait deviations I and steps reciprocal without rail Goal Time Frame: 6-8 Weeks Goal Progress: Goal Met Goal 3:: LT: pain 0/10 at rest and I management of progress with home strength ex Goal Time Frame: 6-8 Weeks Goal Progress: Goal Met Goal 4:: Patient ready to return to hiking and work Goal Time Frame: 8-12 Weeks Goal Progress: Goal Met Goal 5:: LEFS 55 Goal Time Frame: 8-12 Weeks Goal Progress: Progressing Anticipated Interventions Anticipated Interventions Patient/Client Instruction: Educate patient on: Condition and Plan of Care For the Purpose of:: To decrease pain, To increase ROM, To improve nutrient delivery to tissue, To increase oxygenation perfusion, To improve muscle performance and motor function, To increase tolerance to activity/condition/position, To improve ability of physical actions for home/community/work/leisure and To improve gait and locomotor functions Therapeutic Exercise to Include: Strength training, Flexibilty training, Gait and locomotor training, Passive ROM and Active ROM For the Purpose of:: To decrease pain, To increase ROM, To improve nutrient delivery to tissue, To improve muscle performance and motor function, To increase tolerance to activity/condition/position, To improve ability of physical actions for home/community/work/leisure and To improve gait and locomotor functions Manual Therapy Techniques to Include: Scar massage, Mobilization, Passive ROM and Soft tissue mobilization For the Purpose of:: To decrease pain, To decrease swelling/inflammation and To increase ROM Cryotherapy (ice pack, ice massage): Yes For the Purpose of:: To decrease pain and To decrease swelling/inflammation Re-Evaluation Ending Re-evaluation ending: Please do not hesitate to contact me at [phone] by phone or if you have questions or concerns regarding this new plan of care! Sincerely, Sushil Gilliland, DPT, OCS, CSCS
--- NOTE | 2023-12-24 18:13 | HP.PTDCNRP_ITS ---
Patient Information Patient Information: KAROLYN MENENDEZ was seen in my office for initial evaluation on 08/30/23. The following Plan of Care was established for this patient: POC Established Initial Frequency: 1-3x/week Initial Duration: 3 Months Anticipated Interventions Patient/Client Instruction: Educate patient on: Condition and Plan of Care For the Purpose of:: To decrease pain, To increase ROM, To improve nutrient delivery to tissue, To increase oxygenation perfusion, To improve muscle performance and motor function, To increase tolerance to activity/condition/p osition, To improve ability of physical actions for home/community/work/leisure and To improve gait and locomotor functions Therapeutic Exercise to Include: Strength training, Flexibilty training, Gait and locomotor training, Passive ROM and Active ROM For the Purpose of:: To decrease pain, To increase ROM, To improve nutrient delivery to tissue, To improve muscle performance and motor function, To increase tolerance to activity/condition/position, To improve ability of physical actions for home/community/work/leisure and To improve gait and loco motor functions Manual Therapy Techniques to Include: Scar massage, Mobilization, Passive ROM and Soft tissue mobilization For the Purpose of:: To decrease pain, To decrease swelling/inflammation and To increase ROM Cryotherapy (ice pack, ice massage): Yes For the Purpose of:: To decrease pain and To decrease swelling/inflammation Last Seen Last Seen: This patient was last seen in our office 10/11/23. Pertinent comments regarding their Physical therapy will appear below: Pt seen 11 visits of POC and was 95% improved. She cancelled an no showed her last two visits. AT this point, it has been over 2 months and I will di scontinue from my care. At this point I will be discontinuing this patient from physical therapy. I would be happy to see this patient again in the future if found appropriate by the physician. Thank you! Sushil Gilliland, DPT, OCS, CSCS Balance/Gait/Functional tests Balance/Special Test Scores Lower Extremity Functional Score: 28
== END 2023-10-11 19:00 | disposition home or self-care (01) ==
LOC: PT 15:00
PROVIDERS: Referring Provider Orthopaedic Surgery; Visit Provider Orthopaedic Surgery
DX: Q65.89 Other specified congenital deformities of hip (principal)
CPT/HCPCS: 97110; 97140; 97161; 97530

== ENCOUNTER → 2023-10-22 | Outpatient (CLI) | payer BC, SELFPAY ==
--- NOTE | 2023-10-22 10:12 | NM_ITS ---
CLINICAL: 23-year-old female with history of clinical gastroparesis. SEMI-SOLID PHASE 99m Tc SULFUR COLLOID GASTRIC EMPTYING STUDY COMPARISON: Previous semisolid phase gastric emptying study dated 04/24/2023 FINDINGS: The patient was administered 1.0 mCi of 99m Tc sulfur colloid mixed with oatmeal and consumed per os. Image acquisitions in the anterior-posterior projection were obtained for 60 minutes. There is prompt visualization of the stomach. There is no gastroesophageal reflux identified. The T ? linear fit was extrapolated to be 488.70 minutes, (Normal: 12-56 minutes) compared to 64.83 minutes defined on the examination dated 04/24/2023. NM/Gastric Emptying Study IMPRESSION: 1. ABNORMAL 99m Tc sulfur colloid semi-solid phase (oatmeal) gastric emptying imaging examination. A. There is delayed semi-solid phase gastric emptying compared to normal controls. (Faye et al, J Nucl Med Tech 38: 186, 2010). B. Overall compared to the examination dated 04/24/2023, there is an apparent deterioration in semisolid phase emptying as defined above. Electronically Signed: Dg Soni DO at 12:14 EDT ,
== END | disposition home or self-care (01) ==
LOC: NM 10:12
PROVIDERS: Referring Provider Internal Medicine Gastroenterology; Visit Provider Internal Medicine Gastroenterology
DX: K29.60 Other gastritis without bleeding (principal); R11.0 Nausea
CPT/HCPCS: 78264; A9541

== ENCOUNTER → 2023-11-19 | Outpatient (CLI) | payer BC, SELFPAY ==
--- NOTE | 2023-11-19 08:30 | NM_ITS ---
CLINICAL: 23-year-old female with history of semisolid phase abnormal gastric emptying. SOLID PHASE 99m Tc SULFUR COLLOID GASTRIC EMPTYING STUDY COMPARISON: Semisolid phase gastric emptying report dated 10/22/2023 FINDINGS: The patient was administered 1.0 mCi of 99m Tc sulfur colloid mixed with egg and consumed per os. Image acquisitions in the anterior-posterior projections were obtained for 234 minutes following meal consumption. There is prompt visualization of the stomach. There is no gastroesophageal reflux identified. First order kinetics are maintained throughout the duration of the acquisitions. The T ? linear fit was calculated to be 130.78 minutes, (Normal 65-110 minutes). 86.0 % emptying and 14.0 % retention are defined at 4 hours post meal ingestion. NM/Gastric Emptying Study - 4 HR IMPRESSION: 1. ABNORMAL 99m Tc sulfur colloid solid phase gastric emptying imaging examination. A. There is abnormal solid phase gastric emptying compared to normal controls with maintained first order kinetics throughout all components of the examination. (Joe et al, Gastroenterology 77: 75, 1979 Thania et al, Semin Nucl Med 12: 116, 1981 Radha et al, SNM Procedure Guidelines Adult Solid Meal Gastric Emptying Study 3.0 [email or web address]). B. Greater than 10% retention of the initial gastric contents at 4 hours post dose is consistent with abnormal solid phase gastric emptying which correlates with the results of the T ? emptying calculation. (Dago et al, J Nucl Med 48: 568, 2007). Electronically Signed: Dg Soni DO at 10:20 EDT ,
== END | disposition home or self-care (01) ==
LOC: NM 08:26
PROVIDERS: Referring Provider Internal Medicine Gastroenterology; Visit Provider Internal Medicine Gastroenterology
DX: K31.84 Gastroparesis (principal)
CPT/HCPCS: 78264; A9541

== ENCOUNTER 2024-12-18 10:10 | Day surgery (SDC) | payer BC, SELFPAY ==
[2024-12-08 15:14] LABS: Internal QC Validated? YES +Cl - CLEAR BKGD; Pregnancy, Urine Negative Negative; Record Kit Lot#,Urine Preg 947241
[2024-12-08 15:16] LABS: Hematocrit 32.6 % (37-47); Hemoglobin 10.1 g/dL (12.0-15.0); Mean Corpuscular Hgb 27.7 pg (27.0-32.0); Mean Corpuscular Volume 89.3 fL (81-99); Mean Platelet Vol. 10.2 fl (6.2-12.0); Platelet Count 256 K/mm3 (150-450); RBC Distribution Width CV 15.1 % (11.6-14.6); RBC Distribution Width SD 49.1 fl (35.1-43.9); Red Blood Count 3.65 M/mm3 (4.2-5.4); White Blood Count 5.1 K/mm3 (4.4-11.0)
--- NOTE | 2024-12-08 16:43 | PAT.ANE_ITS ---
Pre-Assessment Diagnosis/Proposed Procedure Planned Operative Procedure(s): Hysteroscopy, D&C. 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 When Was Last Pacemaker Check QUESTION #4 FULL TEXT: You/Your Family Experience fever (hyperthermia) with Anesthesia Last Oral Intake Last Oral intake: Last Oral Intake NPO since Meds taken in AM with sips of water? Meds patient instructed to take am of surgery PONV PONV - tool and die machinist: PONV - tool and die machinist Female Yes 12/08/24 11:10 HX of Motion Sickness Yes 12/08/24 11:10 HX of N/V After Surgery Yes 12/08/24 11:10 Non-Smoker Yes 12/08/24 11:10 Duration of Surgery greater No 12/08/24 11:10 than 60 minutes Number of Risk Factors 4 12/08/24 11:10 PONV Score Severe Risk 12/08/24 11:10 Height & Weight Height & Weight: Anesthesia: Height & Weight Height 5 ft 4 in 10/10/23 06:28 Respiratory Assessment Respiratory Assessment - tool and die machinist: Respiratory Tract Infection Hx - tool and die machinist Hx Respiratory Tract Infection No 12/08/24 11:10 STOP Sleep Apnea STOP Sleep Apnea - tool and die machinist: STOP Sleep Apnea - tool and die machinist Hx Hypertension No 12/08/24 11:10 Hx Sleep Apnea No 12/08/24 11:10 CPAP BIPAP Do you snore loudly (louder No 12/08/24 11:10 than talking or can be heard Do you often feel tired/ No 12/08/24 11:10 fatigued/ sleepy during daytime? Has anyone observed you stop No 12/08/24 11:10 breathing during sleep? STOP Results Negative 12/08/24 11:10 QUESTION #5 FULL TEXT : Do you snore loudly (louder than talking or can be heard through closed doors)? 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 Specify any problems Hx of Preganancy in last 3 No 12/08/24 11:10 Months Nurse Filling Out Transfusion [id number] 12/08/24 11:10 & Questions: Date: 12/08/24 12/08/24 11:10 Time: 11:11 12/08/24 11:10 Patient unable to answer at this time (ie. confused, unrespo Any additional information?: Yes /Reproduction History /Reproductive History - tool and die machinist: /Reproductive Hx- tool and die machinist Hx Now No 12/08/24 11:10 Gestational Age (in weeks): EDC: Hx Hx Para Hx Section SAB No 12/08/24 11:10 PFSH Medical History Gastric reflux Hip dysplasia Depression Anxiety Alcohol use Marijuana use Anemia Dietary restriction Non-smoker Home Medications ?Medication ?Instructions ?Recorded ?Last Taken ?Type famotidine 20 mg tablet 20 mg PO BID #60 tabs 10/09/23 Rx quetiapine 100 mg tablet 100 mg PO QHS 10/08/2310/08 History escitalopram oxalate 20 mg tablet 20 mg PO DAILY 12/08 Unknown History ondansetron 4 mg disintegrating 4 mg PO Q8H PRN PRN na usea/vomiting 12/08/24 Unknown History tablet Allergy/AdvReac Type Severity Reaction Status Date / Time Sulfa (Sulfonamide Allergy Intermediate hives Verified 12/08/24 11:06 Antibiotics) chlorhexidine (From AdvReac Rash Verified 12/08/24 11:06 ChloraPrep Clear) isopropyl alcohol (From AdvReac Rash Verified 12/08/24 11:06 ChloraPrep Clear) Family History Other Anxiety Depression Surgical History History of esophagogastroduodenoscopy (EGD) Social History Smoking Status: Never smoker alcohol intake: never substance use type: does not use what type of physical activity do you participate in: none Audit: Pertinent Findings Pertinent Findings Additional pertinent findings: Hemoglobin is 10.1. Recommendation Anesthesia Recommendation Anesthesia recommendation: OPTIMIZED for anesthesia
--- NOTE | 2024-12-14 08:34 | PCM.HP.BLA ---
History and Physical Date of Admission: 12/18/24 Expand All Collapse All Pre-Op History and Physical HPI: The patient is a 24 year old female presenting for discussion regarding AUB/EM polyp pre-operative visit. She is scheduled for Hysteroscopy D&C and polypectomy, for AUB, endometrial polyp on 12/18/24. Procedure discussed along with risks, benefits and complications. Other alternatives discussed for management. Consent form signed? Yes. PAST MEDICAL HISTORY PAST MEDICAL HISTORY Diagnosis Date ? Cystic fibrosis carrier ? Depression ? Erythematous condition ? Gastroparesis ? Generalized anxiety disorder ? Hip dysplasia (HCC) ? PONV (postoperative nausea and vomiting) PAST SURGICAL HISTORY PAST SURGICAL HISTORY Procedure Laterality Date ? EGD multiple ? GASTRIC EMPTYING IMAG STUDY few ? HIP SURGERY HX Right 07/2023 dysplasia surgery ? HIP SURGERY HX Right 03/27/2024 removal of hardware ? SKIN BX, 1 LESION 09/06/2021 CURRENT MEDICATIONS Current Outpatient Medications Medication Sig Dispense Refill ? ondansetron orally disintegrating (ZOFRAN ODT) 4 mg disintegrating tablet take 1 tablet by mouth every 8 hours as needed for nausea and vomiting ? buPROPion SR (WELLBUTRIN SR) 100 mg 12 hr tablet Take 1 tablet by mouth once daily. 30 tablet 2 ? escitalopram oxalate (LEXAPRO) 20 mg tablet Take 1 tablet by mouth once daily. 90 tablet 0 ? QUEtiapine (SEROQUEL) 100 mg tablet Take 1 tablet by mouth daily at bedtime. 100 mg at bedtime. 90 tablet 0 ? lubiprostone (AMITIZA) 24 mcg capsule Take 1 capsule by mouth two times a day with meals. 60 capsule 6 ? pantoprazole DR (PROTONIX) 40 mg tablet Take 1 tablet by mouth two times a day. Start taking medication after procedure for 4 weeks. 60 tablet 0 ? cetirizine (ZYRTEC) 10 mg ODT Take 1 tablet by mouth once daily as needed. ? promethazine (PHENERGAN) 25 mg tablet Take 1 tablet by mouth every 6 hours as needed (for nausea). (Patient not taking: Reported on 12/04/2024) 120 tablet 4 No current facility-administered medications for this visit. ALLERGIES: Bactrim [Sulfamethoxazole-Trimethoprim], Chlorhexidine, Sulfa Drugs [Sulfa (Sulfonamide Antibiotics)], and Trintellix [Vortioxetine] PERSONAL HISTORY: SOCIAL HISTORY Social History Tobacco Use ? Smoking status: Never ? Smokeless tobacco: Never Vaping Use ? Vaping status: Never Used Substance Use Topics ? Alcohol use: Yes Comment: rarely ? Drug use: Not Currently Comment: Marijuana - last late 03/2024 FAMILY HISTORY: FAMILY HISTORY FAMILY HISTORY Problem Relation Age of Onset ? other (Migraines) Mother ? Seizures Father ? Thyroid Sister Hypo ? No Known Problems Brother ? Cystic Fibrosis Brother ? No Known Problems Maternal Grandmother ? Seizures Maternal Grandfather Controlled ? No Known Problems Paternal Grandmother ? No Known Problems Paternal Grandfather ? Hypertension No Family History ? Hyperlipidemia No Family History ? Coronary Artery Disease No Family History ? Diabetes No Family History ? Blood Disease No Family History ? Blood Clots No Family History ? DVT No Family History ? Stroke No Family History ? Factor 5 Leiden No Family History ? Systemic Lupus Erythematosus No Family History ? Multiple Sclerosis No Family History ? Bipolar disorder No Family History ? Schizophrenia No Family History ? Alzheimer's Disease No Family History ? Dementia No Family History ? Parkinson?s Disease No Family History ? Aneurysm No Family History ? COPD No Family History ? Kidney Disease No Family History ? Anesthesia Problems No Family History REVIEW OF SYMPTOMS: negative except as noted above PHYSICAL EXAMINATION: VITALS: Blood pressure 96/58, pulse 78, height 162.6 cm (5' 4), weight 59.4 kg (131 lb), last menstrual period 11/20/2024, SpO2 98%. GENERAL: The patient is well nourished, well hydrated in no acute distress. , The patient is oriented to time, place, and person. NECK: full range of motion LUNGS: Clear to auscultation bilaterally. no wheezes, rhonchi or rales HEART: Regular rate and rhythm, Normal heart sounds, and No murmurs or gallops IMPRESSION: 24yo with AUB, endometrial polyp PLAN: Hysteroscopy, D&C polypectomy with symphion Pt has been counseled on risks/benefits and alternatives of surgery including but not limited to anesthesia, bleeding, infection, uterine perforation with subsequent injury to pelvic structures including bowel, bladder, ureters and vessels. Pt wishes to proceed with surgery at this time. Pre and post op instructions reviewed Pre op labs ordered, CBC, TSH I have reviewed and updated past medical and surgical history, medications and allergies Adamaris Cardenas MD Office Visit on 12/04/2024 Revision History Note shared with patient
[2024-12-18] VITALS (11 sets, daily range): BP systolic 89–100; BP diastolic 52–73; PULSE 53–74; RESP 14–16; TEMP 36.1–37.1; O2SAT 95–100; BMI 21.9
--- NOTE | 2024-12-18 10:20 | PRE.ANES_ITS ---
ASA Classification* ASA Classification ASA Classification: 2 Assessment & Plan Anesthesia* Anesthesia Assessment Anesthesia Assessment: Discussed sedation and/or anesthesia options, risks, benefits, and alternatives with patient/parents/legal guardian/POA. Questions invited. The patient/parents/legal guardian/POA seems to understand and agrees to proceed with anesthesia plan. Reviewed the physical assessment, medical history, allergy history and patient home medications list prior to surgery/procedure/anesthetic and documented any changes. Performed airway and anesthesia risk assessments. Anesthesia Type Anesthesia Type: MAC Anesthesia Focused Assessment* Airway Assessment Mouth opens: >3 cm Mallampati Score: II Labs Anesthesia Preop lab: CBC WBC 5.1 K/mm3 (4.4-11.0) 12/08/24 13:59 12/08/24 RBC 3.65 M/mm3 (4.2-5.4) L 12/08/24 13:59 12/08/24 Hgb 10.1 g/dL (12.0-15.0) L 12/08/24 13:59 5 Hct 32.6 % (37-47) L 12/08/24 13:59 12/08/24 Plt Count 256 K/mm3 (150-450) 12/08/24 13:59 12/08/24 CHEMISTRY Potassium 3.9 mmol/L (3.5-5.1) 11/06/18 08:50 11/06/18 Sodium 140 mmol/L (136-145) 11/06/18 08:50 11/06/18 Magnesium 2.1 mg/dL (1.6-2.6) 11/06/18 08:50 11/06/18 Phosphorus 3.4 mg/dL (2.5-4.9) 11/06/18 08:50 11/06/18 BUN 10 mg/dL (7-18) 11/06/18 08:50 11/06/18 Creatinine 0.84 mg/dL (0.55-1.02) 11/06/18 08:50 11/06/18 Glucose 77 mg/dL (74-106) 11/06/18 08:50 11/06/18 TSH 1.580 uIU/mL (0.300-4.200) 12/08/24 13:59 09/29 COAG Urine Test Negative Negative 12/08/24 13:59 12/08/24 Pre-Assessment Diagnosis/Proposed Procedure Planned Operative Procedure(s): Hysteroscopy, D&C. Anesthesia History Anesthesia History - nuclear test technician: Anesthesia History - nuclear test technician Hx Hospitalization No 12/08/24 11:10 Any Problems With Anesthesia Yes: NAUSEA 12/08/24 11:10 Cholinesterase deficiency No 12/08/24 11:10 You/Your Family Experience No 12/08/24 11:10 fever (hyperthermia) with Relationship Recent Exposure to Contagious No 10/10/23 06:28 Disease Does patient have nerve No 12/08/24 11:10 stimulator Patient instructed to have device shut off --Does patient have Pacemaker or ICD? When Was Last Pacemaker Check QUESTION #4 FULL TEXT: You/Your Family Experience fever (hyperthermia) with Anesthesia Last Oral Intake Last Oral intake: Last Oral Intake NPO since Meds taken in AM with sips of water? Meds patient instructed to take am of surgery PONV PONV - nuclear test technician: PONV - nuclear test technician Female Yes 12/08/24 11:10 HX of Motion Sickness Yes 12/08/24 11:10 HX of N/V After Surgery Yes 12/08/24 11:10 Non-Smoker Yes 12/08/24 11:10 Duration of Surgery greater No 12/08/24 11:10 than 60 minutes Number of Risk Factors 4 12/08/24 11:10 PONV Score Severe Risk 12/08/24 11:10 Height & Weight Height & Weight: Anesthesia: Height & Weight Height 5 ft 4 in 10/10/23 06:28 Respiratory Assessment Respiratory Assessment - nuclear test technician: Respiratory Tract Infection Hx - nuclear test technician Hx Respiratory Tract Infection No 12/08/24 11:10 STOP Sleep Apnea STOP Sleep Apnea - nuclear test technician: STOP Sleep Apnea - nuclear test technician Hx Hypertension No 12/08/24 11:10 Hx Sleep Apnea No 12/08/24 11:10 CPAP BIPAP Do you snore loudly (louder No 12/08/24 11:10 than talking or can be heard Do you often feel tired/ No 12/08/24 11:10 fatigued/ sleepy during daytime? Has anyone observed you stop No 12/08/24 11:10 breathing during sleep? STOP Results Negative 12/08/24 11:10 QUESTION #5 FULL TEXT : Do you snore loudly (louder than talking or can be heard through closed doors)? Tobacco Use History Tobacco Use History - nuclear test technician: Tobacco Use History - nuclear test technician Tobacco Use Smoking Status Never smoker 12/08/24 11:10 Hx Tobacco Use No 12/08/24 11:10 Years Smoking Packs Smoked per Day Smoking Cessation Date was within the last 15 years Hx Smoking Cessation Date Hx Smoking Cessation Counseling Hematologic Medial History Hematologic Hx - nuclear test technician: Hematologic Medical Hx - professional services specialist Hx of Blood Transfusion No 12/08/24 11:10 Hx of Transfusion in last 3 No 12/08/24 11:10 Months Date of Last Transfusion (if within last 3 months) Ever experience any problems No 12/08/24 11:10 with transfusion(s)? Specify any problems Hx of Preganancy in last 3 No 12/08/24 11:10 Months Nurse Filling Out Transfusion CPOWERS2 12/08/24 11:10 & Questions: Date: 12/08/24 12/08/24 11:10 Time: 11:11 12/08/24 11:10 Patient unable to answer at this time (ie. confused, unrespo /Reproduction History /Reproductive History - nuclear test technician: /Reproductive Hx- nuclear test technician Hx Now No 12/08/24 11:10 Gestational Age (in weeks): EDC: Hx Hx Para Hx Section SAB No 12/08/24 11:10 PFSH Medical History Gastric reflux Hip dysplasia Depression Anxiety Alcohol use Marijuana use Anemia Dietary restriction Non-smoker Home Medications ?Medication ?Instructions ?Recorded ?Last Taken ?Type famotidine 20 mg tablet 20 mg PO BID #60 tabs 10/09/23 Rx quetiapine 100 mg tablet 100 mg PO QHS 10/08/2310/08 History escitalopram oxalate 20 mg tablet 20 mg PO DAILY 12/08 Unknown History ondansetron 4 mg disintegrating 4 mg PO Q8H PRN PRN na usea/vomiting 12/08/24 Unknown History tablet Allergy/AdvReac Type Severity Reaction Status Date / Time Sulfa (Sulfonamide Allergy Intermediate hives Verified 12/08/24 11:06 Antibiotics) chlorhexidine (From AdvReac Rash Verified 12/08/24 11:06 ChloraPrep Clear) isopropyl alcohol (From AdvReac Rash Verified 12/08/24 11:06 ChloraPrep Clear) Family History Other Anxiety Depression Surgical History History of esophagogastroduodenoscopy (EGD) Social History Smoking Status: Never smoker alcohol intake: never substance use type: does not use what type of physical activity do you participate in: none Review of Systems (Anesthesia) ROS Narrative System reviewed and no additional complaints, except as documented.
[2024-12-18 10:28] LABS: Internal QC Validated? YES +Cl - CLEAR BKGD; Pregnancy, Urine Negative Negative
[2024-12-18] MEDS: Lactated Ringers 1,000 ML 15 ML IV (10:39)
--- NOTE | 2024-12-18 11:45 | EMB_PTH ---
PATIENT: KAROLYN MENENDEZ LOC: [facility] [place] U#:[id number] AGE/SX: 24/F ROOM: RE12/18/[address]: Dr. Adamaris Romero, MDDOB: 2000 BED: DIS: 12/18/2024 SPEC #: [id number] RECD: 12/18/24 13:05 STATUS: FAIZA DASIA #: [id number] FERMIN: 12/18/24 11:[address]: Adamaris Romero DEPT: SURGICAL PATHOLOGY RECD BY: Harish Montoya ENTERED: 12/18/24 13:27 SP TYPE: ENDOM BX/C NICOLETTE DR: No Primary Care Phys Tissues: A - Endometrium, NOS Procedures: Surgery Specimen Level IV HEADER OPERATION: Hysteroscopy, D&C, polypectomy PRE-OP DIAGNOSIS: Hysteroscopy, D&C, polypectomy TISSUE SUBMITTED: A- Endometrial polyp and curettings MICROSCOPIC DIAGNOSIS A. Endometrium, polyp, curettage: * Fragments of secretory endometrium with features of endometrial polyp. MICROSCOPIC DESCRIPTION Slides are reviewed. GROSS DESCRIPTION A.? Received in formalin labeled with the patient's name and date of . Designated as endometrial polyp and curettings is a 4.3 x 2.3 x 0.8 cm aggregate of pink-kitchen to red tissue fragments and mucoid material.? Entirely submitted in 3 cassettes. AK 12/18/2024 CPT:30574
--- NOTE | 2024-12-18 11:56 | PCM.DC ---
Discharge Instructions Diet Discharge Diet: No restrictions DC O2, CPAP, BIPAP needs Home O2 Discharge instructions: No Dressing / Incision May resume sexual activity in: 1 week Dressing / Incision Call your doctor if you observe: Fever of 101 or Higher, Inability to urinate, Using more than 1 pad per hour and Uncontrolled pain Follow Up Care Please Follow Up With: Adamaris Romero MD When: I will call you with pathology results in 1-2 weeks, if you feel you need an appointment please call [phone] Test Results: Test results from this visit will be discussed in further detail at your follow-up appointment, if applicable. Discharge Plan Admission Attending Provider: Adamaris Romero Primary Care Provider: Sneha James Primary Instructions Print Language: Sinhala Discharge Orders/Prescriptions Prescriptions: No Action famotidine 20 mg tablet 20 mg PO BID Qty: 60 0RF quetiapine 100 mg tablet 100 mg PO QHS ondansetron 4 mg tablet,disintegrating 4 mg PO Q8H PRN PRN (Reason: nausea/vomiting) escitalopram oxalate 20 mg tablet 20 mg PO DAILY Referrals / Follow Up: Care Physician,No Primary [Primary Care Provider] - Disposition Disposition (needs filled in before D/C Order can be placed): Home, Self Care
--- NOTE | 2024-12-18 11:57 | OP.PCM_ITS ---
Operative Report (Standard) Operative Information Date of Procedure: 12/18/24 Pre-Operative Diagnosis: AUB, endometrial polyp Post-Operative Diagnosis: same Surgery/Procedure Performed: hysteroscopy, d&C, polypectomy boat pilot: Yes Mobile Lounge Driver Or Operator: trinh joseph PGY3 Tasks completed by sales assistant entertainment and media: Removing tissue and Retracting Additional assistant research scientist?: No Type of Anesthesia: MAC RN Documented Start/Stop Times: Operation Date: 12/18/24 11:45 Case Time Into Pre-Op 12/18/24 10:26 Select all DRAINS/GRAFTS/IMPLANTS that apply: None Specimen collected: Yes Description of specimen(s) removed: endometrial curettings Description of surgery: Informed consent was obtained the patient was taken the operating room she was placed in supine position. She was given anesthesia. She was then placed in the [facility] where she was prepped and draped in the normal sterile fashion. At this time the weighted speculum was placed in the posterior fornix of vagina. Single-tooth tenaculum was used to gently grasp the anterior lip the cervix. At this time the uterine cavity was sounded to approximately 10 cm. Gentle dilatation was performed once adequate dilatation of the cervix was achieved the hysteroscope using normal saline as a distention medium was placed. Tubal ostia visualized. Symphion resecting device used to obtain endometrial curettings and to perform polypectomy. Tissue will be sent to pathology for evaluation. Tenaculum removed. Good hemostasis. Instrument, lap count correct x 2. Vaginal Sweep was negative. Complications Complications: No Admit VTE Documentation VTE Present on Admission: Yes VTE Mechan Device Prophylaxis: SCD's VTE Pharm Prophylaxis ordered?: No
--- NOTE | 2024-12-18 11:57 | PCM.OPRPT ---
Operative Report (Standard) Operative Information Date of Procedure: 12/18/24 Pre-Operative Diagnosis: AUB, endometrial polyp Post-Operative Diagnosis: same Surgery/Procedure Performed: hysteroscopy, d&C, polypectomy clay artisan: Yes Specialty Sales Consultant: trinh joseph PGY3 Tasks completed by medical library assistant: Removing tissue and Retracting Additional gift shop assistant?: No Type of Anesthesia: MAC RN Documented Start/Stop Times: Operation Date: 12/18/24 11:45 Case Time Into Pre-Op 12/18/24 10:26 Procedure Start Time: 12:12 Procedure Stop Time: 12:27 Select all DRAINS/GRAFTS/IMPLANTS that apply: None Estimated Blood Loss: 5cc Fluids Replaced: 800cc Specimen collected: Yes Description of specimen(s) removed: endometrial curettings and endometrial polyps Description of surgery: Informed consent was obtained the patient was taken the operating room she was placed in supine position. She was given anesthesia. She was then placed in the [facility] where she was prepped and draped in the normal sterile fashion. At this time the weighted speculum was placed in the posterior fornix of vagina. Single-tooth tenaculum was used to gently grasp the anterior lip the cervix. At this time the uterine cavity was sounded to approximately 7 cm. Gentle dilatation was performed once adequate dilatation of the cervix was achieved the hysteroscope using normal saline as a distention medium was placed. multiple endometrial polyps noted. Tubal ostia visualized. Symphion resecting device used to obtain endometrial curettings and to perform polypectomy. Tissue will be sent to pathology for evaluation. Tenaculum removed. Good hemostasis. Instrument, lap count correct x 2. Vaginal Sweep was negative. Surgical Findings: multiple endomtrial polyps Complications Complications: No Admit VTE Documentation VTE Present on Admission: Yes VTE Mechan Device Prophylaxis: SCD's VTE Pharm Prophylaxis ordered?: No Reason prophylaxis not ordered: Treatment Not Indicated
--- NOTE | 2024-12-18 12:31 | PCM.POST.ANE ---
Anesthesia: Postop Eval I Current Vital Signs Temperature: 97 F Pulse Rate: 74 Blood Pressure: 100/73 Respiratory Rate: 14 Pulse Ox: 95 Oxygen Delivery Method: Room Air Assessment Airway patent: Yes Spontaneous unlabored respirations: Yes Mental status: Awake and Calm nausea: No Vomiting: No Anesthesia Complication: No Fluid Hydration Crystalloid volume administer (ml): 800 Total IV fluid infused: 800 Progress Note Anesthesia document: Postop Eval 1 completed: Yes
--- NOTE | 2024-12-18 12:48 | POSTOPAN2_ITS ---
Anesthesia Postop Eval I Sum Postop Eval Completion status Anesthesia document: Postop Eval 1 completed: Yes Anesthesia Postop Eval I Summary Anesthesia Postop Eval I Summary: Anesthesia Postop Eval I: Assessment Summary Airway patent Yes 12/18/24 12:31 CO FOUNDER & CEO.MDOT Spontaneous unlabored Yes 12/18/24 12:31 CO FOUNDER & CEO.MDOT respirations Mental status Awake,Calm 12/18/24 12:31 CO FOUNDER & CEO.MDOT nausea No 12/18/24 12:31 CO FOUNDER & CEO.MDOT Vomiting No 12/18/24 12:31 CO FOUNDER & CEO.MDOT Anesthesia Postop Eval I: Fluid Summary Crystalloid volume administer 800 12/18/24 12:31 CO FOUNDER & CEO.MDOT (ml) Colloids volume administered ( ml) Blood Product volume administered (ml) Total IV fluid infused 800 12/18/24 12:31 CO FOUNDER & CEO.MDOT Anesthesia Postop Eval I: Summary Notes Anesthesia Complication No 12/18/24 12:31 CO FOUNDER & CEO.MDOT Anesthesia Complication Comment: Post-operative progress note Anesthesia: Postop Eval II Evaluation Mental status: Awake and Calm Pain Level: 0 nausea: No Vomiting: No Complications Anesthesia Complication: No
--- NOTE | 2024-12-18 12:48 | PCM.POSTANE2 ---
Anesthesia Postop Eval I Sum Postop Eval Completion status Anesthesia document: Postop Eval 1 completed: Yes Anesthesia Postop Eval I Summary Anesthesia Postop Eval I Summary: Anesthesia Postop Eval I: Assessment Summary Airway patent Yes 12/18/24 12:31 RN LABOR DELIVERY.MDOT Spontaneous unlabored Yes 12/18/24 12:31 RN LABOR DELIVERY.MDOT respirations Mental status Awake,Calm 12/18/24 12:31 RN LABOR DELIVERY.MDOT nausea No 12/18/24 12:31 RN LABOR DELIVERY.MDOT Vomiting No 12/18/24 12:31 RN LABOR DELIVERY.MDOT Anesthesia Postop Eval I: Fluid Summary Crystalloid volume administer 800 12/18/24 12:31 RN LABOR DELIVERY.MDOT (ml) Colloids volume administered ( ml) Blood Product volume administered (ml) Total IV fluid infused 800 12/18/24 12:31 RN LABOR DELIVERY.MDOT Anesthesia Postop Eval I: Summary Notes Anesthesia Complication No 12/18/24 12:31 RN LABOR DELIVERY.MDOT Anesthesia Complication Comment: Post-operative progress note Anesthesia: Postop Eval II Evaluation Mental status: Awake and Calm Pain Level: 0 nausea: No Vomiting: No Complications Anesthesia Complication: No
[2024-12-18] MEDS: Acetaminophen 500 MG Tablet 1000 MG PO (14:19)
== END 2024-12-18 14:34 | disposition home or self-care (01) ==
LOC: SDC 10:11 → AC 10:11
PROVIDERS: Referring Provider Obstetrics & Gynecology; Visit Provider Obstetrics & Gynecology
PROC: 0UB98ZZ Excision of Uterus, Via Natural or Artificial Opening Endoscopic (ICD-10-PCS; CPT 58558; principal; 2024-12-18 11:30)
DX: N93.9 Abnormal uterine and vaginal bleeding, unspecified (principal); F41.1 Generalized anxiety disorder; N84.0 Polyp of corpus uteri; F32.A Depression, unspecified; Z79.899 Other long term (current) drug therapy
CPT/HCPCS: 58558; 00952; 36415; 81025; 84443; 85027; 88305; J2405